=== PATIENT | male | born 1955 | race Two or more races ===

== ENCOUNTER 2018-09-11 09:53 | Inpatient (IN) | payer OTHER ==
[~2018-09-11] VITALS: Ht 177.8 cm; Wt 90.7 kg
[2018-09-11] MEDS ORDERED: COZAAR100 MG PO (11:21)
[2018-09-11] MEDS ORDERED: TAMS0.4C PO (11:22)
[2018-09-11] MEDS ORDERED: PROSCAR5 MG PO (11:22)
[2018-09-23] MEDS ORDERED: HYOSCYAMINE0.125 M1 SL (10:29)
[2018-09-23] MEDS ORDERED: PERCOCET 5-3251 EACH PO (10:30)
[2018-09-23] MEDS ORDERED: INTESTINEX680 M1 PO (10:32)
== END 2018-09-23 13:26 | disposition home or self-care (01) | DRG 331 ==
LOC: SURH 09-20 05:30 → O/R 09-20 05:30 → SURH 09-20 10:43
PROVIDERS: ADMIT Surgery
PROC: 07TB4ZZ Resection of Mesenteric Lymphatic, Percutaneous Endoscopic Approach (ICD-10-PCS; 2018-09-20)
PROC: 0DTL4ZZ Resection of Transverse Colon, Percutaneous Endoscopic Approach (ICD-10-PCS; principal; 2018-09-20 16:45)
DX: K63.5 Polyp of colon (principal); I11.9 Hypertensive heart disease without heart failure; N40.0 Benign prostatic hyperplasia without lower urinary tract symptoms

== ENCOUNTER 2020-05-27 07:00 | Day surgery (SDC) | payer OTHER ==
[~2020-05-27] VITALS: Ht 172.7 cm; Wt 86.2 kg
[~2020-05-27 07:00] MED LIST: COZAAR100 MG PO; HYOSCYAMINE0.125 M1 SL; INTESTINEX680 M1 PO; PERCOCET 5-3251 EACH PO; PROSCAR5 MG PO; TAMS0.4C PO; ZESTRIL10 M1 PO
[2020-05-28] MEDS ORDERED: MIRALAX17 GM PO (10:52)
[2020-05-28] MEDS ORDERED: ULTRAM50 MG PO (10:52)
[2020-05-28] MEDS ORDERED: NEURONTIN300 MG PO (10:52)
[2020-05-28] MEDS ORDERED: TYLENOL ARTHRI650 MG PO (10:52)
== END 2020-05-28 08:00 | disposition home or self-care (01) ==
LOC: CIR.AMB 07:00 → EDSTATUS 08:45 → SURH 08:45 → O/R 09:40 → SURH 09:40 → O/R 18:48 → SURH 18:48 → CIR.AMB 05-28 08:00 → SURH 05-28 15:46
PROVIDERS: ATTEND Surgery
DX: K43.0 Incisional hernia with obstruction, without gangrene (principal); K42.0 Umbilical hernia with obstruction, without gangrene; Z20.828 Contact with and (suspected) exposure to other viral communicable diseases